=== PATIENT | male | born 1995 | race Caucasian/White ===

== ENCOUNTER 2017-03-07 09:48 | Observation (INO) | payer OTHER ==
[2017-03-04 16:01] LABS: BASOPHILS % (AUTO) 0.5 % (0.0-5.0); EOSINOPHILS % (AUTO) 3.1 % (0.0-8.0); HEMATOCRIT 44.8 % (42-54); LYMPHOCYTES % (AUTO) 13.8 % (21.0-51.0); MEAN CORPUSCULAR HEMOGLOBIN 27.3 pg (27.0-33.0); MEAN CORPUSCULAR HGB CONC 32.7 g/dL (32.0-36.0); MEAN CORPUSCULAR VOLUME 83.5 fL (80-100); MONOCYTES % (AUTO) 10.7 % (3.0-13.0); NEUTROPHILS % (AUTO) 71.9 % (40.0-77.0); PLATELET COUNT (AUTO) 218 K/uL (130-400); RED BLOOD CELL COUNT(AUTO) 5.37 MIL/uL (4.50-6.20); RED CELL DISTRIBUTION WIDTH 15.6 % (11.0-15.5); WHITE BLOOD COUNT (AUTO) 10.1 K/uL (4.8-10.8)
[2017-03-04 16:13] LABS: CREATININE 0.8 mg/dL (0.5-1.5); POTASSIUM 4.1 mmol/L (3.5-5.1)
[2017-03-04 16:15] LABS: INR 1.07 (0.85-1.15); PROTHROMBIN TIME 11.2 SEC (9.6-11.6)
[2017-03-04 16:37] VITALS: BP 97/57
[2017-03-07] VITALS (18 sets, daily range): BP systolic 89–118; BP diastolic 56–76
[~2017-03-07] VITALS: Ht 191.8 cm; Wt 108.9 kg
[~2017-03-07 09:48] MED LIST: ASPI-555 PO; FURO40TA5 PO; SACU1TAB PO; SPIR25TA4 PO
[2017-03-07] MEDS ORDERED: SODIUM CHLORIDE 0.9% 1000ML 1,000 ML IV ONE (10:28)
[2017-03-07] MEDS ORDERED: CARV6.25 PO ×2 (10:59→14:20)
[2017-03-07] MEDS ORDERED: LIDOCAINE HCL 1% MDV 50ML VIAL ONE (12:24)
[2017-03-07] MEDS ORDERED: MIDAZOLAM HCL 1 MG/ML 2ML VIAL ONE ×3 (12:24→13:05)
[2017-03-07] MEDS ORDERED: MEPERIDINE-PF 25 MG/ML SYG ONE ×3 (12:24→13:05)
[2017-03-07] MEDS ORDERED: BUPIVACAINE/PF 0.25% 30ML VIAL IJ ONE (12:24)
[2017-03-07] MEDS ORDERED: CEFAZOLIN 1GM / D5W 50ML 150 ML ONE (12:24)
[2017-03-07] MEDS ORDERED: OCTYL 2-CYANOACRYLATE 1 EACH TP ONE (14:05)
[2017-03-07] MEDS ORDERED: ACETAMINOPHEN-CODEINE 300/30MG TAB PO PRN (14:15)
[2017-03-07] MEDS ORDERED: ONDANSETRON HCL 4 MG/2 ML VIAL IV PRN (14:15)
[2017-03-07] MEDS ORDERED: ACETAMINOPHEN 325 MG TAB PO PRN ×2 (14:15)
[2017-03-07] MEDS ORDERED: DOXY100C2 PO (14:20)
[2017-03-07] MEDS ORDERED: ***HM***(Sacubitril/Valsartan (Entresto 24 mg-26 mg Tablet) 1 EACH PO SCH (21:00)
[2017-03-07] MEDS ORDERED: CEFAZOLIN 1GM / D5W 50ML 50 ML IV SCH (21:00)
[2017-03-07] MEDS: CEFAZOLIN SODIUM 1 GM VIAL IVP SCH (21:24)
[2017-03-07] MEDS: ACETAMINOPHEN-CODEINE 300/30MG TAB PO PRN (22:39)
[2017-03-07] MEDS: CARVEDILOL 6.25 MG TABLET PO SCH (22:43)
[2017-03-08] MEDS: CARVEDILOL 6.25 MG TABLET PO SCH ×2 (00:09→10:21)
[2017-03-08 04:02] VITALS: BP 97/65
[2017-03-08] MEDS: CEFAZOLIN SODIUM 1 GM VIAL IVP SCH (06:02)
[2017-03-08] MEDS: ACETAMINOPHEN-CODEINE 300/30MG TAB PO PRN (06:11)
[2017-03-08 07:50] VITALS: BP 101/57
[2017-03-08] MEDS ORDERED: ASPIRIN 81 MG EC TAB PO SCH (09:00)
[2017-03-08] MEDS ORDERED: SPIRONOLACTONE 25 MG TAB PO SCH (09:00)
[2017-03-08] MEDS ORDERED: FUROSEMIDE 40 MG TABLET PO SCH (09:00)
[2017-03-08 11:29] VITALS: BP 94/58
== END 2017-03-08 14:50 | disposition home or self-care (01) ==
LOC: DAH 09:48 → DAHIP 09:49 → DAH 09:49 → 2DH 16:34
PROVIDERS: ADMIT Internal Medicine Cardiovascular Disease; ATTEND Internal Medicine Cardiovascular Disease
DX: I42.0 Dilated cardiomyopathy (principal); I34.0 Nonrheumatic mitral (valve) insufficiency; I50.42 Chronic combined systolic (congestive) and diastolic (congestive) heart failure; I27.20 Pulmonary hypertension, unspecified; Z95.810 Presence of automatic (implantable) cardiac defibrillator
CPT/HCPCS: 33249; 36415; 71046; 80048; 85025; 85610; 85730; 93005; 96374; 96376; A4218; C1721; C1894; C1895 ×2; G0378 ×29; J0690 ×3; J2175 ×3; J2250 ×3; J3490 ×2; J7030; 99152; 99153

== ENCOUNTER 2017-04-14 10:02 | Inpatient (IN) | payer OTHER ==
[~2017-04-14] VITALS: Ht 193 cm; Wt 115.8 kg
[~2017-04-14 10:02] MED LIST changes: +CARV6.25 PO; +DOXY100C2 PO
[2017-04-14] MEDS ORDERED: MILRINONE-D5W 20 MG/100 ML 100 ML IV SCH (10:19)
[2017-04-14 10:25] LABS: BASOPHILS % (AUTO) 1.2 % (0.0-5.0); EOSINOPHILS % (AUTO) 0.3 % (0.0-8.0); HEMATOCRIT 40.6 % (42-54); LYMPHOCYTES % (AUTO) 13.6 % (21.0-51.0); MEAN CORPUSCULAR HEMOGLOBIN 29.2 pg (27.0-33.0); MEAN CORPUSCULAR HGB CONC 33.1 g/dL (32.0-36.0); MEAN CORPUSCULAR VOLUME 88.1 fL (80-100); MONOCYTES % (AUTO) 13.9 % (3.0-13.0); PLATELET COUNT (AUTO) 289 K/uL (130-400); RED BLOOD CELL COUNT(AUTO) 4.61 MIL/uL (4.50-6.20); RED CELL DISTRIBUTION WIDTH 19.2 % (11.0-15.5)
[2017-04-14 10:36] LABS: ALBUMIN 3.3 g/dL (3.5-5.0); BILIRUBIN,TOTAL 2.4 mg/dL (0.2-1.0); MAGNESIUM 1.8 mg/dL (1.80-2.40); TOTAL PROTEIN, SERUM 6.8 g/dL (6.0-8.3)
[2017-04-14 13:00] VITALS: BP 139/73
[2017-04-14] MEDS ORDERED: MILRINONE-D5W 20 MG/100 ML 100 ML IV ONE (14:23)
[2017-04-14] MEDS ORDERED: NITROGLYCERIN 0.4 MG SL TAB SL PRN (14:30)
[2017-04-14] MEDS ORDERED: ACETAMINOPHEN 325 MG TAB PO PRN ×2 (14:30)
[2017-04-14] MEDS ORDERED: LACTULOSE 20 GM/30 ML UDCUP PO PRN (14:30)
[2017-04-14] MEDS ORDERED: POTASSIUM CHLORIDE 10% ELIXIR 20 MEQ/15 ML UDCUP PO PRN (14:30)
[2017-04-14] MEDS ORDERED: IPRATROPIUM/ALBUTEROL SULFATE 3 ML SOLUTION IH PRN (14:30)
[2017-04-14] MEDS ORDERED: ONDANSETRON HCL 4 MG/2 ML VIAL IV PRN (14:30)
[2017-04-14] MEDS ORDERED: LIDOCAINE HCL-MPF 1% 2ML VIAL IVP PRN (14:30)
[2017-04-14] MEDS ORDERED: POTASSIUM CHLORIDE 20 MEQ ERTAB PO PRN (14:30)
[2017-04-14] MEDS ORDERED: MAG HYDROX/AL HYDROX/SIMETH ES 30 ML SUSP UDCUP PO PRN (14:30)
[2017-04-14] MEDS ORDERED: GUAIFENESIN-DM 200/20 MG 10 ML PO PRN (14:30)
[2017-04-14] MEDS ORDERED: POTASSIUM CHLORIDE 20MEQ/100ML 100 ML IV PRN (14:30)
[2017-04-14 16:00] VITALS: BP 118/72
[2017-04-14 20:00] VITALS: BP 117/68
[2017-04-14] MEDS ORDERED: FUROSEMIDE 10 MG/ML 4ML VIAL IVP SCH (21:00)
[2017-04-14] MEDS ORDERED: FAMOTIDINE 20MG TAB 20 MG TAB PO SCH (21:00)
[2017-04-14 23:31] VITALS: BP 110/66
[2017-04-15] MEDS ORDERED: MILRINONE-D5W 20 MG/100 ML 100 ML IV ONE (00:47)
[2017-04-15 03:11] VITALS: BP 116/71
[2017-04-15] MEDS ORDERED: ENOXAPARIN SODIUM 40 MG/0.4 ML SYRINGE SQ SCH (09:00)
== END 2017-04-15 03:38 | disposition short-term general hospital (02) | DRG 292 ==
LOC: EDH 10:02 → EDHIP 10:03 → 2DH 12:57
PROVIDERS: ADMIT Internal Medicine; ATTEND Internal Medicine
DX: I50.33 Acute on chronic diastolic (congestive) heart failure (principal); I42.0 Dilated cardiomyopathy; I48.91 Unspecified atrial fibrillation; R05 Cough; Z82.49 Family history of ischemic heart disease and other diseases of the circulatory system; Z95.810 Presence of automatic (implantable) cardiac defibrillator; Z83.3 Family history of diabetes mellitus
CPT/HCPCS: 36415; 71045; 80053; 83735; 85025; 93005; 94664; J1940; J2260

== ENCOUNTER 2017-04-26 00:26 | Observation (INO) | payer OTHER ==
[~2017-04-26] VITALS: Ht 193 cm; Wt 105.2 kg
[~2017-04-26 00:26] MED LIST changes: -DOXY100C2 PO
[2017-04-26] MEDS ORDERED: ONDANSETRON HCL 4 MG/2 ML VIAL ONE (00:58)
[2017-04-26] MEDS ORDERED: SODIUM CHLORIDE 0.9% 1000ML 1,000 ML IV ONE (00:58)
[2017-04-26 01:25] LABS: BASOPHILS % (AUTO) 0.1 % (0.0-5.0); EOSINOPHILS % (AUTO) 0.2 % (0.0-8.0); HEMATOCRIT 39.1 % (42-54); LYMPHOCYTES % (AUTO) 4.8 % (21.0-51.0); MEAN CORPUSCULAR HEMOGLOBIN 28.6 pg (27.0-33.0); MEAN CORPUSCULAR HGB CONC 33.1 g/dL (32.0-36.0); MEAN CORPUSCULAR VOLUME 86.4 fL (80-100); NEUTROPHILS % (AUTO) 85.9 % (40.0-77.0); PLATELET COUNT (AUTO) 226 K/uL (130-400); RED BLOOD CELL COUNT(AUTO) 4.52 MIL/uL (4.50-6.20); RED CELL DISTRIBUTION WIDTH 17.5 % (11.0-15.5); WHITE BLOOD COUNT (AUTO) 14.8 K/uL (4.8-10.8)
[2017-04-26 01:35] LABS: POTASSIUM 4.3 mmol/L (3.5-5.1)
[2017-04-26 01:40] LABS: ALBUMIN 3.4 g/dL (3.5-5.0); BILIRUBIN,TOTAL 2.7 mg/dL (0.2-1.0); TOTAL PROTEIN, SERUM 7.8 g/dL (6.0-8.3)
[2017-04-26 01:48] LABS: BAND NEUTROPHILS % (MANUAL) 8 % (0-2); LYMPHOCYTES % (MANUAL) 5 % (22-44); MAN.DIFF COMMENT-IMPRESSION MANUAL DIFFERENTIAL; MONOCYTES % (MANUAL) 10 % (2-9); REACTIVE LYMPHOCYTES 2 % (0-0); SEGMENTED NEUTROPHILS % 75 % (40-70)
[2017-04-26 05:16] LABS: AMPHET/METH SCREEN,URINE NEGATIVE (NEGATIVE); BARBITURATE SCREEN, URINE NEGATIVE (NEGATIVE); BENZODIAZEPINES SCREEN,URINE NEGATIVE (NEGATIVE); CANNABINOID SCREEN,URINE NEGATIVE (NEGATIVE); COCAINE SCREEN,URINE NEGATIVE (NEGATIVE); OPIATE SCREEN,URINE NEGATIVE (NEGATIVE); PHENCYCLIDINE SCREEN,URINE NEGATIVE (NEGATIVE)
[2017-04-26 08:07] LABS: BASOPHILS % (AUTO) 0.8 % (0.0-5.0); EOSINOPHILS % (AUTO) 0.3 % (0.0-8.0); HEMATOCRIT 35.2 % (42-54); LYMPHOCYTES % (AUTO) 14.1 % (21.0-51.0); MEAN CORPUSCULAR HGB CONC 33.2 g/dL (32.0-36.0); MEAN CORPUSCULAR VOLUME 87.3 fL (80-100); MONOCYTES % (AUTO) 11.7 % (3.0-13.0); NEUTROPHILS % (AUTO) 73.1 % (40.0-77.0); PLATELET COUNT (AUTO) 213 K/uL (130-400); RED BLOOD CELL COUNT(AUTO) 4.03 MIL/uL (4.50-6.20); RED CELL DISTRIBUTION WIDTH 17.2 % (11.0-15.5); WHITE BLOOD COUNT (AUTO) 13.4 K/uL (4.8-10.8)
[2017-04-26 08:08] LABS: CREATININE 0.8 mg/dL (0.5-1.5); POTASSIUM 3.9 mmol/L (3.5-5.1)
[2017-04-26 08:32] LABS: B-TYPE NATRIURETIC PEPTIDE 2230 pg/mL (0-100)
[2017-04-26] MEDS ORDERED: LEVOFLOXACIN 500 MG/D5W 100 ML 100 ML ONE (08:36)
[2017-04-26 10:03] VITALS: BP 112/76
[2017-04-26 11:15] LABS: OCCULT BLOOD STOOL SINGLE ONLY POSITIVE (NEGATIVE)
[2017-04-26] MEDS ORDERED: ONDANSETRON HCL 4 MG/2 ML VIAL IV PRN (11:30)
[2017-04-26] MEDS ORDERED: LACTULOSE 20 GM/30 ML UDCUP PO PRN (11:30)
[2017-04-26] MEDS ORDERED: MORPHINE SULFATE 2 MG/ML 1ML SYG IV PRN (11:30)
[2017-04-26] MEDS ORDERED: MAG HYDROX/AL HYDROX/SIMETH ES 30 ML SUSP UDCUP PO PRN (11:30)
[2017-04-26] MEDS ORDERED: CEFTRIAXONE 1GM/D5W 50ML 50 ML IV SCH (11:30)
[2017-04-26] MEDS ORDERED: GUAIFENESIN-DM 200/20 MG 10 ML PO PRN (11:30)
[2017-04-26] MEDS ORDERED: NITROGLYCERIN 0.4 MG SL TAB SL PRN (11:30)
[2017-04-26] MEDS ORDERED: ACETAMINOPHEN 325 MG TAB PO PRN ×2 (11:30)
[2017-04-26] MEDS ORDERED: MORPHINE SULFATE 4 MG/1ML SYG IV PRN (11:30)
[2017-04-26] MEDS ORDERED: ACETAMINOPHEN-CODEINE 300/30MG TAB PO PRN ×2 (11:30)
[2017-04-26 11:40] VITALS: BP 122/81
[2017-04-26] MEDS ORDERED: CEFTRIAXONE SODIUM 1 GM IVP SCH (11:45)
[2017-04-26] MEDS: IPRATROPIUM/ALBUTEROL SULFATE 3 ML SOLUTION IH PRN ×2 (12:14→20:12)
[2017-04-26] MEDS ORDERED: ASPIRIN 81MG TAB.CHEW ONE (12:31)
[2017-04-26] MEDS: CARVEDILOL 12.5 MG TABLET PO SCH ×2 (12:36→20:55)
[2017-04-26] MEDS: ASPIRIN 81 MG EC TAB PO SCH (12:37)
[2017-04-26 16:03] VITALS: BP 105/58
[2017-04-26 19:00] VITALS: BP 116/65
[2017-04-26] MEDS ORDERED: CARVEDILOL 12.5 MG TABLET PO SCH (21:00)
[2017-04-27] VITALS: BP 114/61
[2017-04-27 04:00] VITALS: BP 94/56
[2017-04-27 04:35] LABS: HEMATOCRIT 33.9 % (42-54); MEAN CORPUSCULAR HGB CONC 33.4 g/dL (32.0-36.0); MEAN CORPUSCULAR VOLUME 86.9 fL (80-100); PLATELET COUNT (AUTO) 225 K/uL (130-400); RED CELL DISTRIBUTION WIDTH 17.1 % (11.0-15.5); WHITE BLOOD COUNT (AUTO) 11.3 K/uL (4.8-10.8)
[2017-04-27 04:59] LABS: CREATININE 0.9 mg/dL (0.5-1.5); MAGNESIUM 1.6 mg/dL (1.80-2.40); PHOSPHORUS 4.3 mg/dL (2.5-4.9)
[2017-04-27 07:20] VITALS: BP 119/69
[2017-04-27] MEDS: ASPIRIN 81 MG EC TAB PO SCH (08:12)
[2017-04-27 08:13] VITALS: BP 119/69
[2017-04-27] MEDS: CARVEDILOL 12.5 MG TABLET PO SCH (08:13)
[2017-04-27] MEDS ORDERED: ASPIRIN 81 MG EC TAB PO SCH (09:00)
[2017-04-27] MEDS ORDERED: SPIRONOLACTONE 25 MG TAB PO SCH (09:00)
[2017-04-27] MEDS ORDERED: FUROSEMIDE 40 MG TABLET PO SCH (09:00)
[2017-04-27] MEDS ORDERED: METR500T PO (09:32)
== END 2017-04-27 10:32 | disposition home or self-care (01) ==
LOC: EDH 00:26 → EDHIP 02:45 → 2CH 11:40
PROVIDERS: ADMIT Family Medicine; ATTEND Family Medicine
DX: K52.9 Noninfective gastroenteritis and colitis, unspecified (principal); E86.0 Dehydration; I42.9 Cardiomyopathy, unspecified; I34.0 Nonrheumatic mitral (valve) insufficiency; I50.22 Chronic systolic (congestive) heart failure; Z82.49 Family history of ischemic heart disease and other diseases of the circulatory system; Z95.810 Presence of automatic (implantable) cardiac defibrillator; Z83.3 Family history of diabetes mellitus
CPT/HCPCS: 36415 ×2; 71045; 74176; 80048 ×2; 80053; 80305; 82270; 82550; 83690; 83735; 83880; 84100; 84484; 85007; 85025 ×2; 85027; 87046; 87177; 87205; 87324; 87507; 93005; 94640 ×2; 94664; 96374; 99285; A4218; A4510; G0378 ×32; J0696 ×2; J1956; J2405; J7030

== ENCOUNTER 2018-06-07 06:59 | Emergency (ER) | payer OTHER ==
[~2018-06-07 06:59] MED LIST changes: +METR500T PO; -SPIR25TA4 PO; +SPIR25TA6 PO
[2018-06-07 08:56] LABS: BASOPHILS % (AUTO) 0.8 % (0.0-5.0); HEMATOCRIT 40.2 % (42-54); LYMPHOCYTES % (AUTO) 20.1 % (21.0-51.0); MEAN CORPUSCULAR HGB CONC 34.2 g/dL (32.0-36.0); MEAN CORPUSCULAR VOLUME 87.8 fL (79-99); MONOCYTES % (AUTO) 10.3 % (3.0-13.0); NEUTROPHILS % (AUTO) 65.8 % (40.0-77.0); PLATELET COUNT (AUTO) 170 K/uL (130-400); RED BLOOD CELL COUNT(AUTO) 4.58 MIL/uL (4.50-6.20); RED CELL DISTRIBUTION WIDTH 13.3 % (11.0-15.5); WHITE BLOOD COUNT (AUTO) 8.3 K/uL (4.8-10.8)
[2018-06-07 09:10] LABS: CREATININE 0.7 mg/dL (0.5-1.5); POTASSIUM 3.5 mmol/L (3.5-5.1)
[2018-06-07 09:18] LABS: DIGOXIN 0.39 ng/mL (0.50-2.00); MAGNESIUM 1.8 mg/dL (1.80-2.40)
== END 2018-06-07 10:03 | disposition home or self-care (01) ==
LOC: EDH 06:59
DX: G51.0 Bell's palsy (principal); I48.91 Unspecified atrial fibrillation; I50.9 Heart failure, unspecified; Z79.899 Other long term (current) drug therapy
CPT/HCPCS: 36415; 70450; 80048; 80162; 83735; 85025; 93005

== ENCOUNTER 2018-06-11 14:45 | Emergency (ER) | payer OTHER ==
[2018-06-11] MEDS ORDERED: NA BORATE/BORIC AC/H2O/NACL 120 ML OPHTH IRRIG SOLN ONE (15:22)
[2018-06-11] MEDS ORDERED: FLUORESCEIN SODIUM 1 STRIP STRIP ONE (15:22)
[2018-06-11] MEDS ORDERED: TETRACAINE HCL 0.5% 4 ML OPHTH SOLN ONE (15:22)
== END 2018-06-11 16:03 | disposition home or self-care (01) ==
LOC: EDH 14:45
DX: S05.02XA Injury of conjunctiva and corneal abrasion without foreign body, left eye, initial encounter (principal); I50.9 Heart failure, unspecified; I48.91 Unspecified atrial fibrillation; X58.XXXA Exposure to other specified factors, initial encounter; Y93.89 Activity, other specified; Y92.89 Other specified places as the place of occurrence of the external cause; Y99.8 Other external cause status

== ENCOUNTER 2024-04-29 09:04 | Emergency (ER) | payer BC, OTHER ==
[~2024-04-29] VITALS: Ht 193 cm; Wt 136.1 kg
[~2024-04-29 09:04] MED LIST changes: -ASPI-555 PO; +ASPI-556 PO
[2024-04-29 09:41] LABS: HEMATOCRIT 42.4 % (42-54); MEAN CORPUSCULAR HEMOGLOBIN 30.9 pg (27.0-33.0); MEAN CORPUSCULAR HGB CONC 34.2 g/dL (32.0-36.0); MEAN CORPUSCULAR VOLUME 90.4 fL (79-99); RED BLOOD CELL COUNT(AUTO) 4.69 MIL/uL (4.50-6.20); RED CELL DISTRIBUTION WIDTH 13.1 % (11.0-15.5); WHITE BLOOD COUNT (AUTO) 8.5 K/uL (4.8-10.8)
--- NOTE | 2024-04-29 09:47 | ERN ---
General Chief Complaint: Weakness Stated Complaint: GBW,DIZZINESS,N/V Time Seen by MD: 09:11 Source: patient History of Present Illness Initial Comments PATIENT IS A 28-YEAR-OLD GENTLEMAN COMING IN TO BE EVALUATED FOR GENERALIZED BODY WEAKNESS. PER PATIENT HE HAS BEEN OUTSIDE ALL DAY YESTERDAY AND FEELS IF HE WAS DEHYDRATED. PATIENT DOES HAVE A HISTORY OF CARDIAC ISSUES SO HE IS HERE FOR FURTHER EVALUATION. Allergies: Coded Allergies: No Known Drug Allergies (Unverified Allergy, Unknown, 01/03/17) Home Meds Active Scripts Metronidazole (Flagyl) 500 Mg Tablet, 500 MG PO BID, #14 TAB Prov:CARYL LICONA MD 04/27/17 Carvedilol (Carvedilol) 6.25 Mg Tablet, 12.5 MG PO BID, #90 TAB 3 Refills Prov:Angel BARNHART II, MD 03/07/17 Reported Medications Spironolactone (Spironolactone) 25 Mg Tablet, 25 MG PO AM, TAB 01/28/17 Furosemide (Furosemide) 40 Mg Tablet, 40 MG PO AM, TAB 01/28/17 Aspirin (Aspir 81) 81 Mg Tablet.dr, 81 MG PO DAILY, TAB 01/28/17 Sacubitril/Valsartan (Entresto 24 mg-26 mg Tablet) 1 Each Tablet, 1 EACH PO BID, TAB 01/28/17 Past Medical History Past Medical History: CHF, Diabetes-Type II, Hypertension Past Surgical History: Other ROS Dictation CONSTITUTIONAL: NO CHILLS, NO FEVER, WEAKNESS, NO DIAPHORESIS, NO MALAISE. HEAD/FACE: NO SIGNS OF TRAUMA. EENT: NO EYE PAIN, NO BLURRED VISION, NO TEARING, NO DOUBLE VISION, NO EAR PAIN, NO EAR DISCHARGE, NO NOSE PAIN, NO NASAL CONGESTION, NO THROAT PAIN, NO THROAT SWELLING, NO MOUTH PAIN. RESPIRATORY: NO COUGH, NO ORTHOPNEA, NO SOB, NO STRIDOR, NO WHEEZING. CARDIOVASCULAR: NO CHEST PAIN, NO EDEMA, NO PALPITATIONS, NO SYNCOPE. GASTROINTESTINAL/ABDOMINAL: NO ABDOMINAL PAIN, NO CONSTIPATION, NO DIARRHEA, NO NAUSEA, NO VOMITING. GENITOURINARY: NO ABNORMAL DISCHARGE, NO DYSURIA, NO FREQUENT URINATION, NO HEMATURIA. NO COMPLAINTS OF PAIN IN THE GENITALS. MUSCULOSKELETAL: NO BACK PAIN, NO GOUT, NO JOINT PAIN, NO JOINT SWELLING, NO MUSCLE PAIN, NO MUSCLE STIFFNESS, NO NECK PAIN. INTEGUMENTARY: NO CHANGE IN COLOR, NO CHANGE IN HAIR/NAILS, NO DRYNESS, NO LESION, NO LUMPS, NO RASH. NEUROLOGICAL/PSYCH: NO ANXIETY, NOT DEPRESSED, NO EMOTIONAL PROBLEM, NO HEADACHE, NO NUMBNESS, NO PRE-EXISTING DEFICIT, NO HISTORY OF SEIZURES, NO TREMORS, NO WEAKNESS. HEMATOLOGIC/LYMPHATIC: NOT ANEMIC, NO HISTORY OF BLOOD CLOTS, NO APPARENT BLEEDING, NO BRUISING, GLANDS NOT SWOLLEN. ALL SYSTEMS NEGATIVE, EXCEPT NOTED. Physical Exam Physical Exam Dictation VITAL SIGNS: REVIEWED. GENERAL APPEARANCE: ALERT, ORIENTED X3, NO ACUTE DISTRESS, OBESE. HEAD AND FACE: NON-TRAUMATIC. EYES: PERRL, PINK CONJUNCTIVAS, EYELID NO TRAUMA, ANTERIOR CHAMBER CLEAR. EARS: PINNAS INTACT AND NO SIGNS OF TRAUMA OR ERYTHEMA. EAR CANALS CLEAR AND NO DISCHARGE. TMS NO ERYTHEMA. NOSE: NO DISCHARGE, NO BLEEDING. OROPHARYNX: MOUTH NORMAL, TEETH NO CARIES, TONGUE PINK. PHARYNX CLEAR, NO ERYTHEMA. TONSILS NO EXUDATES, NO ABSCESSES NOTED. MUCOUS MEMBRANE MOIST. NECK: SUPPLE, NON-TENDER, NO THYROMEGALY, NO MASSES, NO JVD, NO BRUITS. BREAST: DEFERRED. CHEST: NO TENDERNESS, NO CREPITUS, NO PARADOXICAL MOVEMENT, NO RETRACTIONS. LUNGS: CLEAR, WELL-VENTILATED, SYMMETRIC, NO RALES, NO WHEEZING, NO RHONCHI, NO STRIDOR, GOOD BREATH SOUNDS BILATERALLY. HEART: REGULAR RATE, REGULAR RHYTHM, NO MURMUR, NO GALLOPS. VASCULAR: NO PERIPHERAL EDEMA. ABDOMEN: SOFT, POSITIVE BOWEL SOUNDS, NONDISTENDED, NO GUARDING, NONTENDER, NO REBOUND, NO MASSES NO HEPATOMEGALY, NO SPLENOMEGALY, NO PHOENIX'S SIGN, NO HERNIAS. RECTAL: DEFERRED. GENITAL: DEFERRED. NEUROLOGICAL: NORMAL SPEECH, GROSS MOTOR FUNCTION INTACT, GROSS SENSORY FUNCTION INTACT. MUSCULOSKELETAL: NECK NONTENDER, FULL RANGE OF MOTION, BACK NONTENDER, FULL RANGE OF MOTION. EXTREMITIES: NONTENDER, FULL RANGE OF MOTION. SKIN: COLOR PINK, DRY, NO TURGOR, NO RASH, NO LACERATIONS, NO ABRASIONS, NO CONTUSIONS. LYMPHATICS: DEFERRED. Results Laboratory and Microbiology Lab and Micro Result Laboratory Tests Test 04/29/24 09:29 04/29/24 09:30 04/29/24 10:40 04/29/24 11:22 B-Type Natriuretic Peptide 24 pg/mL (0-100) White Blood Count 8.5 K/uL (4.8-10.8) Red Blood Count 4.69 MIL/uL (4.50-6.20) Hemoglobin 14.5 g/dL (14.0-18.0) Hematocrit 42.4 % (42-54) Mean Corpuscular Volume 90.4 fL (79-99) Mean Corpuscular Hemoglobin 30.9 pg (27.0-33.0) Mean Corpuscular Hemoglobin Concent 34.2 g/dL (32.0-36.0) Red Cell Distribution Width 13.1 % (11.0-15.5) Platelet Count 174 K/uL (130-400) Mean Platelet Volume 10.9 fL (7.5-10.5) H Nucleated Red Blood Cells 0.0 % (0.0-0.19) Prothrombin Time 10.9 SEC (9.6-11.6) Prothromb Time International Ratio 1.03 (0.85-1.15) Activated Partial Thromboplast Time 25.6 SEC (26.3-35.5) L Urine Color YELLOW (YELLOW) Urine Appearance CLEAR (CLEAR) Urine pH 6.5 (5.0-8.0) Urine Specific [place] 1.023 (1.001-1.031) Urine Protein 20 mg/dL (NEGATIVE) H Urine Glucose (UA) NEGATIVE mg/dL (NEGATIVE) Urine Ketones NEGATIVE mg/dL (NEGATIVE) Urine Occult Blood NEGATIVE (NEGATIVE) Urine Nitrate NEGATIVE (NEGATIVE) Urine Bilirubin NEGATIVE mg/dL (NEGATIVE) Urine Urobilinogen 0.2 mg/dL (0.2-1.0) Urine Leukocyte Esterase NEGATIVE Vera/uL Urine RBC 0-1 /HPF (0-1) Urine WBC 0-1 /HPF (0-1) Urine Amorphous Crystals (Auto) RARE /LPF (None Seen) Urine Bacteria None /HPF (None Seen) Sodium Level 138 mmol/L (136-145) Potassium Level 3.7 mmol/L (3.5-5.1) Chloride Level 102 mmol/L (101-111) Carbon Dioxide Level 31 mmol/L (21-32) Blood Urea Nitrogen 7 mg/dL (7-18) Creatinine 0.6 mg/dL (0.5-1.3) Glomerular Filtration Rate Calc 135 mL/min (>90) Random Glucose 116 mg/dL (70-105) H Lactic Acid Level 2.3 mmol/L (0.8-2.5) 1.4 mmol/L (0.8-2.5) Total Calcium 8.2 mg/dL (8.5-10.1) L Total Creatine Kinase 54 U/L (21-232) # Troponin I High Sensitivity 8 ng/L (4-75) 6 ng/L (4-75) Urine Opiates Screen NEGATIVE (NEGATIVE) Urine Barbiturates Screen NEGATIVE (NEGATIVE) Urine Phencyclidine Screen NEGATIVE (NEGATIVE) Urine Amphetamines Screen NEGATIVE (NEGATIVE) Urine Benzodiazepines Screen NEGATIVE (NEGATIVE) Urine Cocaine Screen NEGATIVE (NEGATIVE) Urine Marijuana (THC) Screen NEGATIVE (NEGATIVE) Labs Reviewed?: Yes EKG/XRAY/US/CT/MRI EKG Comment 04/29/2024 TIME 9:28 A.M. VENTRICULAR RATE 89 SINUS RHYTHM AL [address] WAVE ELEVATION OR DEPRESSION MDM MDM: DIFFERENTIAL DIAGNOSIS: DEHYDRATION, WEAKNESS, SEPSIS, PATIENT IS A 28-YEAR-OLD GENTLEMAN COMING IN TO BE EVALUATED FOR GENERALIZED BODY WEAKNESS. LABORATORY WORKUP WHICH INCLUDES CARDIAC WORKUP NEGATIVE FOR ACUTE FINDINGS. PATIENT DID PRESENT WITH MILD DEHYDRATION PATIENT WAS HYDRATED WITH IV FLUIDS LABORATORY WORKUP CONSISTENT WITH IMPROVED HIM IN. PATIENT WILL BE DISCHARGED IN STABLE CONDITION I DID ADVISED HIM APPROPRIATE FOLLOW UP WITH PCP IN 1-2 DAYS. ALSO ADVISED HIM PROPER HYDRATION. ED Course Orders Procedure Category Date Status Time 12 Lead Ekg Tracing- EKG 04/29/24 Logged Technical 09:29 Troponin I High LAB 04/29/24 Complete Sensitivity 09:29 Cbc Without LAB 04/29/24 Complete Differential 09:29 Basic Metabolic Panel LAB 04/29/24 Complete 09:29 Lactic Acid LAB 04/29/24 Complete 09:29 Blood Cult DATLON 04/29/24 In Process 09:29 Urinalysis Profile LAB 04/29/24 Complete 09:29 Creatine Kinase, Total LAB 04/29/24 Complete 09:29 Pt And Ptt LAB 04/29/24 Complete 09:29 Chest 1vw RAD 04/29/24 Resulted 09:29 Drug Screen Urine LAB 04/29/24 Complete 09:44 B-Type Natriuretic LAB 04/29/24 Complete Peptide 09:45 0.9%Nacl 1000ml (Ns PHA 04/29/24 Complete 1000ml) 10:30 Troponin I High LAB 04/29/24 Complete Sensitivity 10:34 Lactic Acid LAB 04/29/24 Complete 11:12 Current Medications Medications (Trade) Dose Ordered Sig/Willie Route PRN Reason Start Time Stop Time Status Last Admin Dose Admin Sodium Chloride 1,000 ml @ 0 mls/hr Q0M ONCE IV 04/29/24 10:30 04/29/24 10:31 DC 04/29/24 10:23 Vital Signs Date Time Temp Pulse Resp B/P (MAP) Pulse Ox O2 Delivery O2 Flow Rate FiO2 04/29/24 09:34 97.7 94 16 129/91 100 Room Air* 0 21 04/29/24 09:07 97.7 89 20 129/91 99 0 DX & DISP Disposition: Discharge Departure Impression: Primary Impression: Dehydration Condition: Stable Additional Instructions: FOLLOW-UP WITH PRIMARY CARE PROVIDER IN 1 TO 2 DAYS. TAKE MEDICATIONS DIRECTED HERE IN THE EMERGENCY ROOM. OKAY TO CONTINUE HOME MEDICATIONS UNLESS OTHERWISE DISCUSSED DURING YOUR VISIT IN THE EMERGENCY ROOM TODAY. RETURN TO YOUR NEAREST EMERGENCY ROOM IF SYMPTOMS WORSEN OR IF THERE IS NO IMPROVEMENT. CALL 911 IF YOU NEED IMMEDIATE ASSISTANCE. TAKE TYLENOL [id number] NEEDED AND IF NO CONTRAINDICATIONS ARE PRESENT. INCREASE ORAL HYDRATION. A WOUND CULTURE OR URINE CULTURE WAS ORDERED HERE IN THE EMERGENCY ROOM DEPARTMENT PLEASE FOLLOW-UP WITH PRIMARY CARE PROVIDER AND ADVISE THEM TO GET REPEAT PORTS FROM OUR FACILITY. IF YOU HAD ANY ILSA WRAP/SPLINTS THAT WERE APPLIED HERE, PLEASE DO NOT REMOVE THEM UNTIL YOU SEE YOUR PRIMARY CARE OR SPECIALTY. REFERRALS: Referrals: HERMELINDA MCBRIDE MD, PA (PCP) Time of Disposition: 11:40 JAZMIN MARTINEZ MD Apr 29, 2024 09:47
[2024-04-29 09:49] LABS: CREATININE 0.6 mg/dL (0.5-1.3); POTASSIUM 3.7 mmol/L (3.5-5.1)
[2024-04-29 09:50] LABS: APPEARANCE,URINE CLEAR (CLEAR); BILIRUBIN,URINE NEGATIVE (NEGATIVE); COLOR,URINE YELLOW (YELLOW); GLUCOSE, URINE (UA) NEGATIVE (NEGATIVE); KETONES,URINE NEGATIVE (NEGATIVE); LEUKOCYTE ESTERASE ,URINE NEGATIVE Leu/uL (NEGATIVE); NITRATE,URINE NEGATIVE (NEGATIVE); OCCULT BLOOD,URINE NEGATIVE (NEGATIVE); PH,URINE 6.5 (5.0-8.0); PROTEIN,URINE 20 mg/dL (NEGATIVE); UROBILINOGEN,URINE 0.2 mg/dL (0.2-1.0)
[2024-04-29 09:54] LABS: ADD UA MICROSCOPIC YES
[2024-04-29 09:56] LABS: MUCUS,URINE RARE LPF (None Seen); RBC,URINE 0-1 /HPF (0-1); WBC,URINE 0-1 /HPF (0-1)
[2024-04-29 10:01] LABS: AMPHET/METH SCREEN,URINE NEGATIVE (NEGATIVE); BARBITURATE SCREEN, URINE NEGATIVE (NEGATIVE); BENZODIAZEPINES SCREEN,URINE NEGATIVE (NEGATIVE); CANNABINOID SCREEN,URINE NEGATIVE (NEGATIVE); COCAINE SCREEN,URINE NEGATIVE (NEGATIVE); OPIATE SCREEN,URINE NEGATIVE (NEGATIVE); PHENCYCLIDINE SCREEN,URINE NEGATIVE (NEGATIVE)
[2024-04-29 10:02] LABS: INR 1.03 (0.85-1.15); PROTHROMBIN TIME 10.9 SEC (9.6-11.6)
[2024-04-29 10:03] LABS: PARTIAL THROMBOPLASTIN TIME 25.6 SEC (26.3-35.5)
[2024-04-29] MEDS: 0.9%NACL 1000ML 1,000 ML IV ONE (10:23)
--- NOTE | 2024-04-29 11:10 | NUR ---
PATIENT STATES " I FEEL BETTER," S/P IV FLUID BOLUS. DENIES GENERALIZED WEAKNESS OR OTHER VARIANCES AT THIS TIME.
--- NOTE | 2024-04-29 11:10 | HMCIMG ---
PORTABLE CHEST RADIOGRAPH INDICATION: PROTOCOL COMPARISON: 04/26/2017 FINDINGS: Left costophrenic angle was not included on this study. Left sided dual chamber pacer and continuous leads remain in customary position. Images is somewhat underexposed, but the radiologic examination is still believed to be of reasonable diagnostic quality. Heart size is normal. The pulmonary vascularity and angie appear normal. No abnormal pulmonary parenchymal opacity or consolidation identified. No significant pleural effusion noted. No pneumothorax detected. IMPRESSION: Limitations as reported. No radiographic evidence for any acute cardiopulmonary process.
[2024-04-29 11:43] VITALS: BP 125/83; PULSE 74; RESP 16; TEMP 97.7; O2SAT 99
--- NOTE | 2024-04-29 12:56 | EKG ---
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
== END 2024-04-29 11:44 | disposition home or self-care (01) ==
LOC: EDH 09:04
DX: E86.0 Dehydration (principal); E11.9 Type 2 diabetes mellitus without complications; I11.0 Hypertensive heart disease with heart failure; I50.9 Heart failure, unspecified; Z79.82 Long term (current) use of aspirin; Z79.899 Other long term (current) drug therapy
CPT/HCPCS: 99284; 96360; 71045; 82550; 84484 ×2; 80048; 83880; 80305; 85027; 85610; 85730; 87040 ×2; 83605 ×2; 36415; 93005; 81001; J7030